=== PATIENT | female | born 1940 | race Caucasian/White ===

== ENCOUNTER → 2017-10-24 | Day surgery (SDC) | payer MEDICARE ==
[2017-10-23 11:12] VITALS: BMI 28.3
[~2017-10-24] MED LIST: Diazepam 5 MG TAB ONE; Prevnar 13-Val Conj/PF 0.5 ML SYRINGE IM ONE
[2017-10-24 07:25] VITALS: TEMP 97
--- NOTE | 2017-10-24 11:10 | RAD ---
CERVICAL MYELOGRAM: HISTORY: Radiculopathy. COMPARISON: None. FINDINGS: The patient was brought to the fluoroscopy suite. All questions were answered. The patient's back was prepped and draped in the normal sterile fashion. Informed consent was obtain ed. A time-out was performed. There was extensive bone graft material over the patient's lower lumbar spine. Using a 22 gauge need le, the L1-L2 interspace had to be accessed, as the lower levels were unable to be accessed. Clear C SF was visualized and 10 mL of Omnipaque 200 was instilled into the thecal sac. The patient tolerate d the procedure well without complications. IMPRESSION: Technically successful fluoroscopic guided cervical myelogram. POS: TANIA
--- NOTE | 2017-10-24 11:28 | CT ---
CT CERVICAL SPINE WITH CONTRAST: HISTORY: M54.12, cervical radiculopathy. COMPARISON: None. FINDINGS: There is interstitial edema in the lung apices. Multiple hypodensities are present in both lobes of the thyroid. Paraspinal musculature has very mild atrophy. There is reversal of normal cervical taylor dosis. There is anterior plate and screw fixation at C3-C7. No hardware fracture. There is mild an terior bowing of the hardware with the C4, C5, and C6 anterior vertebral body margins not abutting th e plate. There are large erosions of the odontoid process as well as both occipital condyles and lateral rebecca s of C1. The large erosive soft tissue panus at the odontoid process narrows the ventral CSF space a nd abuts the cord. This involves the transverse ligaments of the dens as well as the pectoral membra ne. Levels are as follows: C2-3: Moderate left and mild right-sided facet arthropathy. Moderate left and mild right neural for aminal narrowing. C3-4: Anterior spinal fusion. Small posterior disk-osteophyte complex. Mild facet arthrosis on the right and moderate on the left. Moderate left and mild right-sided neural foraminal narrowing. C4-5: There are diskectomy changes and fusion. There is fusion of the posterior elements on the lef t. Mild degenerative disease of the right posterior elements. Moderate left-sided and mild right-si ded neural foraminal narrowing. Mild uncinate process hypertrophy. The spinal canal centrally is mi ldly narrowed to 9 mm. C5-6: There are diskectomy changes and fusion. Moderate uncinate process hypertrophy. Mild facet a rthrosis. There is moderate bilateral neural foraminal narrowing. The spinal canal is narrowed to a pproximately 8 mm. C6-7: Moderate erosive changes of the disk space. Small posterior disk-osteophyte complex. No unci nirav process hypertrophy. Mild facet disk arthropathy. Mild bilateral neural foraminal narrowing. Mild effacement of the ventral CSF space. IMPRESSION: 1. Large erosive changes of the occipital condyles, odontoid process, and lateral masses of C1. The re is also extensive panus formation of the tectorial membrane and of the transverse segment to the d ens. These findings can be seen with inflammatory arthropathy such as rheumatoid arthritis. At this level, the posterior panus formation at the tip of the C2 causes narrowing of the ventral cerebrospi nal fluid space and abuts the proximal cord. This can be the cause of patient's symptomatology. 2. Mild anterior bowing of the C3-C7 plate for which the C4, C5, and C6 anterior vertebral bodies a re not abutting the plate. There is loss of normal cervical lordosis at these levels. POS: DUDLEY
== END ==
LOC: RAD 06:55
PROVIDERS: ATTEND Neurological Surgery
PROC: B02BY0Z Computerized Tomography (CT Scan) of Spinal Cord using Other Contrast, Unenhanced and Enhanced (ICD-10-PCS; principal; 2017-10-24)
DX: M54.12 Radiculopathy, cervical region (principal); J44.9 Chronic obstructive pulmonary disease, unspecified
CPT/HCPCS: 62302; 72126